=== PATIENT | female | born 1995 ===

== ENCOUNTER 2017-07-05 16:26 | Emergency (ER) | payer OTHER ==
[2017-07-05 16:45] VITALS: BP 121/74; PULSE 71; RESP 18; TEMP 98.1; O2SAT 100
[2017-07-05] MEDS ORDERED: Oxycodone/Acetaminophen 5/325 mg Tab PO STA (16:49)
[2017-07-05] MEDS ORDERED: Oxycodone/Acetaminophen 5/325 mg Tab ONE (16:59)
--- NOTE | 2017-07-05 17:13 | C.PDOC ---
History Of Present Illness 22 year old female who is 22 weeks presents to the ER with a complaint of dental pain. Patient states she broke her tooth, she went to seen the dentist who told her they cannot do anything until she gets insurance. Patient has been taking tylenol with no relief and is on amoxicillin; she states she has not been able to sleep due to the pain. Denies fever, tooth bleeding, or tooth discharge. Time Seen by Provider: 07/05/17 16:48 Chief Complaint (Nursing): Dental Pain History Per: Patient History/Exam Limitations: no limitations Onset/Duration Of Symptoms: Days Current Symptoms Are (Timing): Still Present Recent travel outside of the [place]: No Past Medical History Reviewed: Historical Data, Nursing Documentation, Vital Signs Vital Signs: Last Vital Signs Temp 98.1 F 07/05/17 16:43 Pulse 71 07/05/17 16:43 Resp 18 07/05/17 16:43 BP 121/74 07/05/17 16:43 Pulse Ox 100 07/05/17 17:27 Family History: States: Unknown Family Hx - Social History Hx Alcohol Use: No Hx Substance Use: No - Immunization History Hx Tetanus Toxoid Vaccination: No Hx Influenza Vaccination: No Hx Pneumococcal Vaccination: No Review Of Systems Constitutional: Negative for: Fever, Chills ENT: Positive for: Mouth Pain Physical Exam - Physical Exam Appears: Non-toxic, Other (Uncomfortable) Skin: Normal Color, Warm, Dry Head: Atraumatic, Normacephalic Eye(s): bilateral: Normal Inspection Oral Mucosa: Moist Tongue: Normal Appearing Lips: Normal Appearing Teeth: Other (Left lower 1st molar with caries, cavity, and half the crown is completely gone. No surrounding swelling.) Gingiva: Swelling Throat: Normal, No Erythema Neurological/Psych: Oriented x3, Normal Speech ED Course And Treatment O2 Sat by Pulse Oximetry: 100 (room air) Pulse Ox Interpretation: Normal Progress Note: Percocet administered for pain with relief, will discharge home with instructions to follow up with dentist for further evaluation. Disposition - Disposition Referrals: [facility] [Outside] Disposition: HOME/ ROUTINE Disposition Time: 17:11 Condition: STABLE Additional Instructions: Follow up with Dentist within 1-2 days. Return to ED of feel worse. 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 - Scribe Statement The provider has reviewed the documentation as recorded by the Scribe Дмитрий Tena All medical record entries made by the Scribe were at my direction and personally dictated by me. I have reviewed the chart and agree that the record accurately reflects my personal performance of the history, physical exam, medical decision making, and the department course for this patient. I have also personally directed, reviewed, and agree with the discharge instructions and disposition.
== END 2017-07-05 17:28 | disposition home or self-care (01) ==
LOC: C.ER 16:26
DX: K02.9 Dental caries, unspecified (principal); Z3A.22 22 weeks gestation of pregnancy